=== PATIENT | female | born 1970 | race Caucasian/White ===

== ENCOUNTER 2020-08-08 15:23 | Emergency (ER) | payer OTHER ==
[2020-08-08 16:06] LABS: PTT,PARTIAL THROMBOPLSTIN TIME 23.4 SEC (23.2-32.3)
--- NOTE | 2020-08-08 16:10 | EDM.PDOC ---
ED HPI GENERAL MEDICAL PROBLEM - General Chief Complaint: Respiratory Problem Stated Complaint: SOB Time Seen by Provider: 08/08/20 15:46 Source of Information: Reports: Patient History Limitations: Reports: No Limitations - History of Present Illness INITIAL COMMENTS - FREE TEXT/NARRATIVE: Patient presents to ER with complaints of shortness of breath. Is 5 weeks out from COVID infection but shortness of breath persists and she is worried about a blood clot. States did have pain in her calves about the time she had covid, no noted swelling in her legs. She had fevers, chills and cough during active infection. Worried that she still gets short of breath at rest at times and especially with any activity. No other lingering symptoms from COVID at this point. Onset: Gradual Duration: Week(s):, Waxing/Waning Location: Reports: Chest Quality: Reports: Ache Severity: Mild Associated Symptoms: Reports: Shortness of Breath. Denies: Confusion, Chest Pain, Cough, Fever/Chills, Loss of Appetite, Nausea/Vomiting, Weakness - Related Data Allergies Allergy/AdvReac Type Severity Reaction Status Date / Time No Known Allergies Allergy Verified 08/08/20 15:26 Home Meds: Home Meds . [No Known Home Meds] 08/08/20 [History] Past Medical History - Infectious Disease History Infectious Disease History: Reports: Chicken Pox, Novel Coronavirus - Past Surgical History HEENT Surgical History: Reports: Adenoidectomy, Tonsillectomy GI Surgical History: Reports: Appendectomy, Cholecystectomy Female Surgical History: Reports: Section Social & Family History - Tobacco Use Tobacco Use Status *Q: Never Tobacco User - Caffeine Use Caffeine Use: Reports: Coffee - Recreational Drug Use Recreational Drug Use: No ED ROS GENERAL - Review of Systems Review Of Systems: See Below Constitutional: Denies: Fever, Chills, Malaise, Weakness, Fatigue HEENT: Denies: Ear Pain, Rhinitis, Sinus Problem, Throat Pain, Vertigo Respiratory: Reports: Shortness of Breath, Pleuritic Chest Pain. Denies: Cough Cardiovascular: Denies: Chest Pain, Edema, Lightheadedness Endocrine: Reports: Fatigue GI/Abdominal: Denies: Abdominal Pain, Nausea, Vomiting : Reports: No Symptoms Musculoskeletal: Reports: No Symptoms Skin: Reports: No Symptoms Neurological: Reports: No Symptoms ED EXAM, GENERAL - Physical Exam Exam: See Below Exam Limited By: No Limitations General Appearance: Alert, WD/WN, No Apparent Distress Ears: Normal External Exam, Normal TMs Nose: Normal Inspection, Normal Mucosa, No Blood Throat/Mouth: Normal Inspection, Normal Oropharynx Head: Normocephalic Neck: Normal Inspection, Supple, Non-Tender Respiratory/Chest: No Respiratory Distress, Lungs Clear, Normal Breath Sounds Cardiovascular: Regular Rate, Rhythm GI/Abdominal: Normal Bowel Sounds, Soft, Non-Tender Extremities: Normal Inspection, No Pedal Edema Neurological: Alert, Oriented Skin Exam: Warm, Dry Course - Vital Signs Last Recorded V/S: Last Vital Signs Temp 98.2 F 08/08/20 15:23 Pulse 77 08/08/20 15:23 Resp 16 08/08/20 15:23 BP 156/86 H 08/08/20 15:23 Pulse Ox 100 08/08/20 15:23 - Orders/Labs/Meds Orders: Active Orders 24 hr Category Date Time Status EKG Documentation Completion [RC] STAT Care 08/08/20 15:27 Active Chest 2V [CR] Stat Exams 08/08/20 15:27 Taken Labs: Laboratory Tests 08/08/20 08/08/20 08/08/20 Range/Units 15:27 15:27 15:27 WBC 5.6 (5.0-10.0) 10^3/uL RBC 4.63 (4.00-5.50) 10^6/uL Hgb 13.7 (12.0-16.0) g/dL Hct 41.8 (37.0-47.0) % MCV 90.3 (82.0-94.0) fL MCH 29.6 (27.0-32.0) pg MCHC 32.8 L (33.0-38.0) g/dL RDW Coeff of Keaton 13.6 (11.0-15.0) % Plt Count 206 (150-400) 10^3/uL Neut % (Auto) 64.8 (35-85) % Lymph % (Auto) 25.0 (10-55) % Canadian % (Auto) 8.9 (0-16) % Eos % (Auto) 1.1 (0-5) % Baso % (Auto) 0.2 (0-3) % Neut # (Auto) 3.66 (1.80-7.00) 10^3/uL Lymph # (Auto) 1.41 (1.00-4.80) 10^3/uL Canadian # (Auto) 0.50 (0.00-0.80) 10^3/uL Eos # (Auto) 0.06 (0.00-0.45) 10^3/uL Baso # (Auto) 0.01 10^3/uL PT 10.4 (9.7-12.3) SEC INR 1.03 (0.92-1.18) APTT 23.4 (23.2-32.3) SEC D-Dimer, Quantitative 0.35 (0.00-0.50) Sodium 138 (136-145) mEq/L Potassium 4.2 (3.5-5.0) mEq/L Chloride 103 (98-106) mEq/L Carbon Dioxide 28 (21-32) mmol/L BUN 9 (7-18) mg/dL Creatinine 0.7 (0.6-1.0) mg/dL Est Cr Clr Drug Dosing 95.58 mL/min Estimated GFR (MDRD) > 60 (>=60) mL/min Glucose 99 (75-99) mg/dL Lactic Acid (0.4-2.0) mmol/L Calcium 8.9 (8.4-10.1) mg/dL Total Bilirubin 0.4 (0.0-1.0) mg/dL AST 23 (15-37) U/L ALT 81 H (12-78) U/L Alkaline Phosphatase 90 (46-116) U/L Creatine Kinase 83 (21-215) U/L Troponin I < 0.017 (0.00-0.06) ng/mL NT-Pro-B Natriuret Pep 143 (0-1000) pg/mL Total Protein 6.9 (6.4-8.2) g/dL Albumin 3.7 (3.4-5.0) g/dL 08/08/20 Range/Units 15:27 WBC (5.0-10.0) 10^3/uL RBC (4.00-5.50) 10^6/uL Hgb (12.0-16.0) g/dL Hct (37.0-47.0) % MCV (82.0-94.0) fL MCH (27.0-32.0) pg MCHC (33.0-38.0) g/dL RDW Coeff of Keaton (11.0-15.0) % Plt Count (150-400) 10^3/uL Neut % (Auto) (35-85) % Lymph % (Auto) (10-55) % Canadian % (Auto) (0-16) % Eos % (Auto) (0-5) % Baso % (Auto) (0-3) % Neut # (Auto) (1.80-7.00) 10^3/uL Lymph # (Auto) (1.00-4.80) 10^3/uL Canadian # (Auto) (0.00-0.80) 10^3/uL Eos # (Auto) (0.00-0.45) 10^3/uL Baso # (Auto) 10^3/uL PT (9.7-12.3) SEC INR (0.92-1.18) APTT (23.2-32.3) SEC D-Dimer, Quantitative (0.00-0.50) Sodium (136-145) mEq/L Potassium (3.5-5.0) mEq/L Chloride (98-106) mEq/L Carbon Dioxide (21-32) mmol/L BUN (7-18) mg/dL Creatinine (0.6-1.0) mg/dL Est Cr Clr Drug Dosing mL/min Estimated GFR (MDRD) (>=60) mL/min Glucose (75-99) mg/dL Lactic Acid 0.8 (0.4-2.0) mmol/L Calcium (8.4-10.1) mg/dL Total Bilirubin (0.0-1.0) mg/dL AST (15-37) U/L ALT (12-78) U/L Alkaline Phosphatase (46-116) U/L Creatine Kinase (21-215) U/L Troponin I (0.00-0.06) ng/mL NT-Pro-B Natriuret Pep (0-1000) pg/mL Total Protein (6.4-8.2) g/dL Albumin (3.4-5.0) g/dL - Re-Assessments/Exams Free Text/Narrative Re-Assessment/Exam: 08/08/20 labs are all normal. EKG and chest xray are normal. patient advised Departure - Departure Time of Disposition: 16:18 Disposition: Home, Self-Care 01 Condition: Good Clinical Impression: COVID-19 virus infection - Discharge Information *PRESCRIPTION DRUG MONITORING PROGRAM REVIEWED*: No *COPY OF PRESCRIPTION DRUG MONITORING REPORT IN PATIENT ALLIE: No Instructions: COVID-19 Frequently Asked Questions Referrals: PCP,None [Primary Care Provider] - Forms: ED Department Discharge Additional Instructions: 1. Push fluids 2. Rest 3. Lie on abdomen as much as possible 4. Tylenol or ibuprofen for fever or discomfort 5. Return if changes or concerns. Sepsis Event Note (ED) - Evaluation Sepsis Screening Result: No Definite Risk - Focused Exam Vital Signs: Vital Signs Temp Pulse Resp BP Pulse Ox 08/08/20 15:23 98.2 F 77 16 156/86 H 100 - My Orders Last 24 Hours: My Active Orders 08/08/20 15:27 EKG Documentation Completion [RC] STAT Chest 2V [CR] Stat - Assessment/Plan Last 24 Hours: My Active Orders 08/08/20 15:27 EKG Documentation Completion [RC] STAT Chest 2V [CR] Stat
[2020-08-08 16:13] LABS: CHLORIDE,CL 103 mEq/L (98-106); SODIUM,NA 138 mEq/L (136-145)
== END 2020-08-08 16:28 | disposition home or self-care (01) ==
LOC: CC.ED 15:23
DX: U07.1 COVID-19 (principal)
CPT/HCPCS: 36415; 71046; 80053; 82550; 83605; 83880; 84484; 85025; 85379; 85610; 85730; 93005; 99285-25